=== PATIENT | male | born 1950 | race Hispanic/Latino ===

== ENCOUNTER 2024-10-25 08:40 | Outpatient (CLI) | payer OTHER ==
[2024-10-25] MEDS ORDERED: Iopamidol 300 61% 100 ML VIAL FS ONE (10:10)
== END 2024-10-25 08:41 | disposition home or self-care (01) ==
LOC: CSHCT 08:40
PROVIDERS: ATTEND Internal Medicine Hematology & Oncology
DX: C83.33 Diffuse large B-cell lymphoma, intra-abdominal lymph nodes (principal); D72.818 Other decreased white blood cell count; D69.59 Other secondary thrombocytopenia; D63.8 Anemia in other chronic diseases classified elsewhere
CPT/HCPCS: 71260; 74177